=== PATIENT | male | born 1990 | race Caucasian/White ===

== ENCOUNTER 2016-11-06 08:00 | Outpatient (RCR) | payer OTHER ==
[~2016-11-06 08:00] MED LIST: FLEXERIL 1010 MG/TAB PO; NAPROSYN500 MG PO; NORCO 325 MG-51 TAB PO
== END 2016-11-06 09:19 | disposition home or self-care (01) ==
LOC: MKS.ESL.PT 08:00
DX: M25.572 Pain in left ankle and joints of left foot (principal); Z87.828 Personal history of other (healed) physical injury and trauma

== ENCOUNTER 2017-05-29 15:01 | Emergency (ER) | payer SELFPAY ==
[~2017-05-29] VITALS: Ht 175.3 cm; Wt 90.9 kg
[2017-05-29 15:05] VITALS: TEMP 98.2
[2017-05-29] MEDS ORDERED: NORCO 325 MG-51 TAB PO (17:32)
[2017-05-29 17:42] VITALS: BP 124/86; PULSE 53
[2017-05-31] MEDS ORDERED: ANTIVERT 12.512.5 MG PO (13:56)
[2017-05-31] MEDS ORDERED: ZOFRAN ODT4 MG PO (13:56)
== END 2017-05-29 17:45 | disposition home or self-care (01) ==
LOC: COL.ER 15:01
DX: S06.0X9A Concussion with loss of consciousness of unspecified duration, initial encounter (principal); S50.01XA Contusion of right elbow, initial encounter; M54.6 Pain in thoracic spine; Z98.890 Other specified postprocedural states; W17.89XA Other fall from one level to another, initial encounter; Y92.59 Other trade areas as the place of occurrence of the external cause; Y99.0 Civilian activity done for income or pay
CPT/HCPCS: J1885; J2405; J7030

== ENCOUNTER 2017-06-18 14:53 | Outpatient (RCR) | payer OTHER ==
[~2017-06-18 14:53] MED LIST changes: +ANTIVERT 12.512.5 MG PO; +ZOFRAN ODT4 MG PO
== END 2017-07-01 14:15 | disposition still patient (30) ==
LOC: WSOH 14:53
DX: S06.0X9D Concussion with loss of consciousness of unspecified duration, subsequent encounter (principal); M54.2 Cervicalgia; M54.5 Low back pain; M54.6 Pain in thoracic spine; W30.8 Contact with other specified agricultural machinery

== ENCOUNTER 2017-07-08 15:39 | Outpatient (RCR) | payer OTHER | END 2017-07-30 13:25 | disposition home or self-care (01) | LOC: WSOH 15:39 | DX: S06.0X9D Concussion with loss of consciousness of unspecified duration, subsequent encounter (principal); M54.2 Cervicalgia; M54.5 Low back pain; M54.6 Pain in thoracic spine; W17.89XD Other fall from one level to another, subsequent encounter; Y99.0 Civilian activity done for income or pay ==

== ENCOUNTER 2017-07-16 14:00 | Outpatient (RCR) | payer OTHER | END 2017-07-18 16:52 | disposition home or self-care (01) | LOC: WSPT 14:00 | DX: S06.0X9D Concussion with loss of consciousness of unspecified duration, subsequent encounter (principal); M54.5 Low back pain; M54.2 Cervicalgia; M54.6 Pain in thoracic spine | CPT/HCPCS: G0283-GP ==

== ENCOUNTER 2017-10-01 09:00 | Outpatient (RCR) | payer OTHER | END 2017-10-01 10:53 | disposition home or self-care (01) | LOC: WSPT 09:00 | DX: M54.2 Cervicalgia (principal); F07.81 Postconcussional syndrome | CPT/HCPCS: G0283-GP ==